=== PATIENT | female | born 1985 | race Caucasian/White ===

== ENCOUNTER 2022-03-07 09:06 | Outpatient (CLI) | payer OTHER, SELFPAY ==
--- NOTE | 2022-03-07 09:15 | CRLHL7_ITS ---
For Patients: As a result of the Cures Act, medical imaging exams and procedure reports are released immediately into your electronic medical record. You may view this report before your referring provider. If you have questions, please contact your health care provider. INDICATION: First trimester scan, establish dates. COMPARISON: None. TECHNIQUE: Real-time trammell-scale imaging of the pelvis was performed. FINDINGS: Sonographic imaging demonstrates a single living intrauterine gestation. The embryo demonstrates a regular cardiac rate measuring 157 beats per minute. The embryo`s crown-rump length measurement of 3.1 cm corresponds to a gestational age of 10 weeks 0 days with a sonographic due date of 10/03/2022. There is a normal-appearing yolk sac. There are no gross abnormalities noted within the embryo at this early state of development. The gestational sac has a normal appearance. There is an inferior perigestational hemorrhage measuring 1.8 x 0.6 x 3.4 cm and a superior perigestational hemorrhage measuring 0.8 x 1.3 x 2.2 cm. The amount of fluid within the sac appears appropriate for gestational age. The cervix is closed. The myometrium appears normal. The ovaries are of normal size. Corpus luteal cyst right ovary. There are no suspicious fluid collections noted in the cul-de-sac. IMPRESSION: Single living intrauterine with sonographic gestational age 10 weeks 0 days and sonographic due date of 10/03/2022. There are 2 subchorionic hemorrhages measuring 8 x 13 x 22 millimeters and 18 x 6 x 34 millimeters. Dictated by Elpidio Cool MD @ 03/07/2022 9:54:32 AM (Electronically Signed)
== END 2022-03-07 09:07 | disposition home or self-care (01) ==
LOC: US 09:06
PROVIDERS: Visit Provider Registered Nurse
DX: Z34.91 Encounter for supervision of normal pregnancy, unspecified, first trimester (principal); O20.9 Hemorrhage in early pregnancy, unspecified; Z3A.10 10 weeks gestation of pregnancy
CPT/HCPCS: 76801

== ENCOUNTER 2022-03-07 10:05 | Outpatient (CLI) | payer OTHER, SELFPAY ==
[2022-03-07 12:46] LABS: Hepatitis B Surface Antigen* Negative (Negative); Hepatitis C Virus Antibody* Negative (Negative)
[2022-03-07 13:53] LABS: HIV 1/2/P24 Combo Screen* Reactive (Negative)
[2022-03-07 14:44] LABS: Chlamydia DNA Amplified* NOT DETECTED (No Detected); GC DNA Amplified* NOT DETECTED (No Detected)
[2022-03-08 16:16] LABS: HIV Serologic Interpretation HIV Abs Neg; HIV-1 Antibody Negative (Negative); HIV-2 Antibody Negative (Negative)
[2022-03-08 17:07] LABS: Rapid Plasma Reagin (RPR) Non Reactive (Non Reactive)
[2022-03-08 17:22] LABS: Rubella Antibody IgG 12.9 IU/mL; Varicella-Zoster Virus Ab, IgG 448.2 IV
[2022-03-09 13:41] LABS: HIV-1 Qnt NAAT copies/mL Not Detected log cpy/mL
== END 2022-03-07 10:06 | disposition home or self-care (01) ==
PROVIDERS: Visit Provider Advanced Practice Midwife
DX: Z34.91 Encounter for supervision of normal pregnancy, unspecified, first trimester (principal); Z3A.09 9 weeks gestation of pregnancy
CPT/HCPCS: 84443; 86592; 86701; 86702; 86703; 86762; 86787; 86803; 86850; 86900; 86901; 87086; 87340; 87491; 87591

== ENCOUNTER 2022-04-22 15:45 | Emergency (ER) | payer OTHER, SELFPAY ==
[2022-04-22 15:54] VITALS: BP 102/72; PULSE 153; RESP 18; TEMP 37.7; O2SAT 99; BMI 29.2
--- NOTE | 2022-04-22 16:20 | ED.ARRPALP ---
HPI - Arrhythmia/Palpitations General Chief Complaint: Arrhythmia/Palpitations Stated Complaint: Tachycardia Time Seen by Provider: 04/22/22 15:58 History of Present Illness HPI narrative: This 36-year-old female is 16 weeks and has a history of SVT. She states that she awoke this morning at around 4:00 a.m. and noticed that her heart was beating rapidly. She did try some vagal maneuvers without resolution. She does not report any chest pain, lightheadedness, or shortness of breath. Related Data Home Medications Medication Instructions Recorded Confirmed cetirizine 10 mg capsule (Zyrtec) 10 mg PO QDAY PRN 03/07/22 03/07/22 docosahexaenoic acid 200 mg mg PO 03/07/22 03/07/22 capsule ( DHA) acetaminophen 500 mg tablet 1,000 mg PO Q6H PRN 04/19/22 04/19/22 (Tylenol Extra Strength) aspirin 81 mg chewable tablet 81 mg PO QDAY 04/19/22 04/19/22 Allergies Allergy/AdvReac Type Severity Reaction Status Date / Time No Known Allergies Allergy Unverified 04/19/22 15:41 Review of Systems Status of ROS: Reports: 10 or more systems reviewed and unremarkable except as noted in History and below Narrative: Constitutional: No fevers, no weight gain or loss. Eyes: No discharge. No vision changes. HENT: No congestion, no sore throat, no ear pain. Cardiovascular: No chest pain. Increased heart rate. Respiratory: No shortness of breath, no wheezes, no cough. Gastrointestinal: No abdominal pain, no vomiting, no diarrhea. Genitourinary: No dysuria, no hematuria. Musculoskeletal: Normal range of motion. Skin: No rashes, no pruritis. Neurological: No dizziness, weakness, sensory change, speech change. Endo/Heme/Allergies: No bruising or bleeding. No polydipsia. Pysch: no suicidality, no anxiety, no insomnia. All other systems reviewed and are negative. [facility] Medical History (Updated 04/22/22 @ 17:28 by Pablo Hernandez MD) Anxiety History of Supraventricular tachycardia Surgical History (Updated 03/07/22 @ 14:57 by Mima Mcneal CNM) H/O adenoidectomy History of section Advance teeth extracted Family History (Updated 03/07/22 @ 10:14 by Mima Mcneal CNM) Father Skin cancer Mother Skin cancer Tachycardia Maternal Grandmother Tachycardia Social History (Updated 03/08/22 @ 13:15 by Mima Mcneal CNM) Narrative: SOCIAL?? Education:? bachelors?? 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 Lives with:? and kids?? Pets: dog? Abuse:? Denies past/present?? Special Diet: Denies?? Ok with a blood transfusion:? yes?? Culture or yarsanism beliefs:? denies? Are you following a diet prescribed by a doctor: No Are you following a special diet: No Highest level of school completed/degree received: Bachelor's degree Physical activity type: walking and other Physical activity type details: IdeaString body workout How many days of moderate to strenuous exercise, like a brisk walk, did you do in the last 7 days: 4 Smoking Status: Never smoker How often do you have a drink containing alcohol: never How often do you have six or more drinks on one occasion: Never AUDIT-C Alcohol total score: 0 Non-prescribed substance use: denies use Caffeine: Yes (occasionally only) Little interest or pleasure in doing things: not at all Feeling down, depressed, or hopeless: not at all service: No Exam Narrative: Exam Narrative: Constitutional: Well-developed, well-nourished, no acute distress. HEENT: Normocephalic, atraumatic. Neck: Normal range of motion. Nontender. Supple. Heart: Regular. No murmurs. Tachycardia, rate around 130 beats per minute. Intact distal pulses. Lungs: Clear to auscultation. No chest discomfort. No wheezes, rhonchi, or rales. Abdomen: Normal bowel sounds. Nontender. No rebound tenderness. Gravid. Genitalia: Deferred. Back: No midline tenderness. Normal range of motion. Extremities: Normal range of motion. No injury. Skin: Intact. No rash. Warm. No erythema or pallor. Neurologic: No altered sensation. No weakness. Alert and oriented. Psychiatric: No suicidality. No anxiety or depression. No insomnia. Nursing notes and vitals signs are reviewed. Const: Vital Signs, click to edit/add: Vital Signs - 24 hr 04/22/22 15:54 Temperature 99.8 F H Pulse Rate [Right Pulse Oximeter] 153 H Respiratory Rate 18 Blood Pressure [Ri ght Upper Arm] 102/72 Pulse Oximetry 99 Oxygen Delivery Me thod Room Air Course Vital Signs Vital signs: Initial Vital Signs Temperature 99.8 F H 04/22/22 15:54 Temperature Source Temporal Artery Scan 04/22/22 15:54 Pulse Rate 153 H 04/22/22 15:54 Respiratory Rate 18 04/22/22 15:54 Blood Pressure 102/72 04/22/22 15:54 Blood Pressure Mean 82 04/22/22 15:54 Blood Pressure Position Sitting 04/22/22 15:54 Pulse Oximetry 99 04/22/22 15:54 Oxygen Delivery Method 04/22/22 15:54 Vital Signs Temperature 99.8 F H 04/22/22 15:54 Pulse Rate 153 H 04/22/22 15:54 Respiratory Rate 18 04/22/22 15:54 Blood Pressure 102/72 04/22/22 15:54 Pulse Oximetry 99 04/22/22 15:54 Oxygen Delivery Method 04/22/22 15:54 Temperature 99.8 F H 04/22/22 15:54 Pulse Rate 153 H 04/22/22 15:54 Respiratory Rate 18 04/22/22 15:54 Blood Pressure 102/72 04/22/22 15:54 Pulse Oximetry 99 04/22/22 15:54 Oxygen Delivery Method 04/22/22 15:54 MDM - Arrhythmia/Palpitations MDM Narrative Medical decision making narrative: This patient arrives with increased heart rate due to supraventricular tachycardia. She has had episodes of this in the past but not during . An IV was established where she received 6 mg of adenosine. This brought brief slowing of her heart but it returned again to around 130 beats per minute. A 2nd dose of 6 mg of adenosine was administered again with similar results however within less than a minute her heart began to decrease down to around 110 beats per minute. The patient states that she feels better with this treatment. She has continued to have a heart rate around 100 beats per minute throughout her stay here. She did receive a L of normal saline intravenously. Lab results returned with reassuring findings also except for an elevation in the point of care troponin at 0.09. A repeat troponin I was acquired from the lab and returns elevated at 0.21. The patient has not had any chest pain. She does not have any sign of unilateral limb pain or swelling and no history of blood clot. She is not hypoxic and has oximetry at 98% on room air. I discussed these matters with the camp counselor post tensioning ironworker helper at [facility] who agrees that this is most likely demand ischemia related to her tachycardia over the course of about 12 hours. She is okay to return home and encouraged to follow-up with her primary physician or return if recurrent or worsening symptoms happen. Lab Data Labs: Lab Results 04/22/22 04/22/22 04/22/22 Range/Units 16:10 16:10 16:21 WBC 11.76 H (4.50-11.00) K/uL RBC 4.61 (4.00-5.20) m/uL Hgb 13.6 (12.0-16.0) gm/dL Hct 40.7 (33.0-51.0) % MCV 88 (80-100) fL MCH 30 (26-34) pg MCHC 33 (32-36) gm/dL RDW Coeff of Bonita 13.1 (11.5-15.5) % Plt Count 259 (140-440) K/uL Neut % (Auto) 71.1 (42.0-72.0) % Lymph % (Auto) 21.5 (20-44) % [place] % (Auto) 6.4 (0.0-11.0) % Eos % (Auto) 0.5 (0.0-7.0) % Baso % (Auto) 0.3 (0.0-3.0) % Neut # (Auto) 8.40 H (1.7-7.0) K/uL Lymph # (Auto) 2.50 (0.90-2.90) K/uL [place] # (Auto) 0.80 (0.00-0.90) K/UL Eos # (Auto) 0.10 (0.00-0.50) K/uL Baso # (Auto) 0.00 (0.00-0.30) K/uL Abs Immat Gran (auto) 0.02 (0.00-0.30) K/uL Sodium 136 (135-149) mmol/L Potassium 3.4 L (3.6-5.1) mmol/L Chloride 105 (96-114) mmol/L Carbon Dioxide 21 (20-32) mmol/L BUN 8 (5-24) mg/dL Creatinine 0.4 L (0.5-1.5) mg/dL Estimated Creat Clear 185.52 Estimated GFR 133 ml/min Glucose 147 H (60-115) mg/dL Calcium 9.0 (8.4-10.6) mg/dL Magnesium 1.8 (1.5-2.6) mg/dL Troponin I (0.01-0.04) ng/mL POC Troponin I 0.09 H (0.01-0.04) ng/ml 04/22/22 Range/Units 17:24 WBC (4.50-11.00) K/uL RBC (4.00-5.20) m/uL Hgb (12.0-16.0) gm/dL Hct (33.0-51.0) % MCV (80-100) fL MCH (26-34) pg MCHC (32-36) gm/dL RDW Coeff of Bonita (11.5-15.5) % Plt Count (140-440) K/uL Neut % (Auto) (42.0-72.0) % Lymph % (Auto) (20-44) % [place] % (Auto) (0.0-11.0) % Eos % (Auto) (0.0-7.0) % Baso % (Auto) (0.0-3.0) % Neut # (Auto) (1.7-7.0) K/uL Lymph # (Auto) (0.90-2.90) K/uL [place] # (Auto) (0.00-0.90) K/UL Eos # (Auto) (0.00-0.50) K/uL Baso # (Auto) (0.00-0.30) K/uL Abs Immat Gran (auto) (0.00-0.30) K/uL Sodium (135-149) mmol/L Potassium (3.6-5.1) mmol/L Chloride (96-114) mmol/L Carbon Dioxide (20-32) mmol/L BUN (5-24) mg/dL Creatinine (0.5-1.5) mg/dL Estimated Creat Clear Estimated GFR ml/min Glucose (60-115) mg/dL Calcium (8.4-10.6) mg/dL Magnesium (1.5-2.6) mg/dL Troponin I 0.21 H* (0.01-0.04) ng/mL POC Troponin I (0.01-0.04) ng/ml Discharge Plan Discharge Clinical Impression: , Supraventricular tachycardia Patient Disposition: Home, Self-Care Condition: Improved Additional Instructions: Continue current plans. Follow-up with OBGYN or primary physician. Return if recurrent or worsening symptoms happen. Prescriptions: No Action Zyrtec 10 mg capsule 10 mg PO QDAY PRN DHA 200 mg capsule PO acetaminophen [Tylenol Extra Strength] 500 mg tablet 1,000 mg PO Q6H PRN aspirin 81 mg tablet,chewable 81 mg PO QDAY Follow Up/Referrals: Provider,Not a Local [Primary Care Provider] - Stand Alone Forms: [facility] Info Instructions Procedures Ultrasound Other exam #1: Anatomical areas examined: at 16 weeks gestation. Indications: Mother had supraventricular tachycardia. Exam type: focused emergency ultrasound Description/findings: Normal heart activity and anatomy. Impression: Normal findings at 16 weeks gestation.
[2022-04-22 16:27] LABS: Troponin, Point-of-Care* 0.09 ng/ml (0.01-0.04)
[2022-04-22 16:40] LABS: Basophils Percent Auto 0.3 % (0.0-3.0); Eosinophils Percent Auto 0.5 % (0.0-7.0); Hematocrit 40.7 % (33.0-51.0); Hemoglobin* 13.6 gm/dL (12.0-16.0); Immature Granulocytes Abs Auto 0.02 K/uL (0.00-0.30); Lymphocytes Percent Auto 21.5 % (20-44); Mean Corpuscular HGB Conc 33 gm/dL (32-36); Mean Corpuscular Hemoglobin 30 pg (26-34); Mean Corpuscular Volume 88 fL (80-100); Monocytes Percent Auto 6.4 % (0.0-11.0); Neutrophils Percent Auto 71.1 % (42.0-72.0); Platelet Count* 259 K/uL (140-440); RDW Coefficient of Variation % 13.1 % (11.5-15.5); Red Blood Count 4.61 m/uL (4.00-5.20); White Blood Count* 11.76 K/uL (4.50-11.00)
[2022-04-22 16:41] LABS: Chloride* 105 mmol/L (96-114); Potassium* 3.4 mmol/L (3.6-5.1); Sodium* 136 mmol/L (135-149)
[2022-04-22 16:43] LABS: Creatinine* 0.4 mg/dL (0.5-1.5); Est. Creatinine Clearance* 185.52; Estimated Glomerular Filt Rate 133 ml/min; Slide Review Reflex No
[2022-04-22 16:44] LABS: Blood Urea Nitrogen* 8 mg/dL (5-24); Carbon Dioxide* 21 mmol/L (20-32); Glucose* 147 mg/dL (60-115)
[2022-04-22 16:45] LABS: Magnesium* 1.8 mg/dL (1.5-2.6)
[2022-04-22 18:12] LABS: Troponin I* 0.21 ng/mL (0.01-0.04)
--- OUTSIDE RECORDS SUMMARY | 2022-04-30 21:27 | XMS_ITS | Clinical Summary ---
:1985 Author Organization [employer] [facility] [place] [address] Care Team Providers Name Role Phone None Unavailable Unavailable Joanna Gaines MD Primary Care Provider Allergies No known active allergies Medications Medication Sig Dispensed Refills Start Date End Date Status hydrOXYzine pamoate Take 1 capsule by 90 capsule 0 07/31/2020 Active (VISTARIL) 25 mg mouth 3 times capsuleIndications: daily if needed Anxiety for Anxiety (may take up to 50 mg at bedtime). cetirizine (ZYRTEC) 10 Take 1 Tablet (10 0 Active mg tablet mg) by mouth once daily. montelukast Take 1 Tablet (10 90 Tablet 3 05/21/2021 Active (SINGULAIR) 10 mg mg) by mouth at tabletIndications: bedtime. Seasonal allergies Active Problems Problem Noted Date Nexplanon in place 05/21/2021 Paroxysmal SVT (supraventricular tachycardia) 05/21/20 21 Anxiety 05/21/2021 12/24/2018 Overview: Formatting of this note is dif ferent from the original. Estimated Date of Delivery: 07/24/19 Patient's last menstrual period was 09/21 (exact date). Last Tdap- 10/26/2016 Last Flu vaccine- 04/21/2016 Glucose (GTT) result- too early No Known Allergies OB History Para Term AB Living 2 1 1 0 0 1 SAB TAB Ectopic Multiple Live Births 0 0 0 0 1 # Outcome Date GA Lbr Stanford/2nd Weight Sex Delivery Anes PTL Lv 2 Current 1 Term 01/12/17 39w5d 3.74 kg (8 lb 4 oz ) F CS-LVertical SPINAL N REYES Complications: Intolerance, Failu re to Progress in First Stage Name: [place] Create lab flowsheet for OB labs- Component Latest Ref Rng & Units 11/27/2018 9 11/27/2018 8:45 AM 8:45 AM 8:45 AM ANTIBODY SCREEN Negative Negative SPECIMEN EXPIRATION DATE/TIME 11/30/18 23:59 HEMOGLOBIN 12.0 - 16.0 g/dL 14.2 MCV 80 - 100 fL 88 RUBELLA IGG ANTIBODY Positive 1.73 HEMOGLOBIN A1C SCREENING <=6.4 % 5.2 ABORH O Rh Positive HBSAG Nonreactive Nonreactive HEPATITIS C ANTIBODY Non-Reactive Non-Reactive HIV-1/HIV-2 ANTIBODY Non-Reactive Non-Reactive TREPONEMA PALLIDUM Negative Negative Past Medical History: Diagnosis Date ? ? ALLERGIC RHINITIS CAUSE UNSPECIFIED 01/02/2007 ? ? Palpitations 1992 childhood--work-up negative ? ? Supervision of normal first in first trimester 05/11/2016 Past Surgical History: Procedure Laterality Date ? ? ADENOIDECTOMY 01/26/99 Dr. San ? ? [place] CREATE EARDRUM OPENING GEN ANESTH 01/26/99 Dr. San ? ? WISDOM TEETH EXTRACTION 01/2005 No data on file. Problems (from 11/27/18 to pre sent) No problems associated with this episod eAnya Lay RNC.....12/24/2018 10:15 AM History of 12/21/2018 Supervision of normal first in first trimest er 05/11/2016 Overview: Formatting of this note is dif ferent from the original. Complications this : none ?? Father of baby: Ger ? GBS: GTT: 130 Blood type: O+ Hemoglobin: 13.5-11.4 HIV negative Hepatitis B Negative Treponema Negative Rubella immune Immunizations: Tdap -- 10/26/2016 Influenza-- 04/21/2016 Family planning, BCP maintenance 2013 SVT (supraventricular tachycardia) 05/25/2010 Overview: Periodic episodes--had full cardiac work up 07/01--plan is to observe for now. Allergic rhinitis, cause unspecified 01/02/2007 Dysmenorrhea 01/02/2007 Immunizations Name Administration Dates Next Due AMB Influenza, IIV4 PF (=>6 mos 04/17/2020 Flulaval,Fluzone Fluarix)(Flu Clinic Only) COVID-19 vaccine (Moderna 07/02/2021, 11/18/2020, 10/21/2020 100mcg/0.5mL) PF, MDV DTP 02/04/1993, 03/31/1989, 03/21/1988, 02/03/1988, 1987 HIB PRP-D (ProHIBIT) 03/31/1989 HPV 9 (Gardasil 9) 07/25/2007, 01/02/2007 Hepatitis A (Adult) 02/16/2009, 03/12/2008 Hepatitis B (Peds) 08/02/2000, 03/06/2000, 01/31/2000 Human Papilloma Virus Vaccine 07/25/2007, 03/06/2007, 200607/06/2007 Influenza A (H1N1), Inactivated 07/20/2009 Influenza Virus, Unspecified 05/21/2014 Influenza, IIV3 (Age >=3 years) 05/15/2017, 05/27/2005, 04/25 Influenza, IIV4 06/01/2021, 05/02/2019, 05/18/2018, 04/21/2016, 07/20/2009 MMR 08/20/1999, 12/23/1988 Meningococcal Vaccine (Menactra) 03/25/2005 Meningococcal Vaccine (Menomune) 03/25/2005 Oral Polio Vaccine 02/04/1993, 03/31/1989, 02/03/1988, 1987 Td (Age >=7 Years) 08/20/1999 Tdap 05/14/2019, 10/26/2016, 02/04/2011 Family History Medical History Relation Name Comments Good Health Father Good Health Maternal Grandfather Good Health Maternal Grandmother Stroke Maternal Grandmother Good Health Mother Cancer-breast Paternal Aunt Hyperlipidemia Paternal Aunt Other Paternal Grandfather brain cance r Good Health Paternal Grandmother Other Paternal Uncle brain cancer Relation Name Status Comments Father Alive Maternal Grandfather (Age 93) Maternal Grandmother Alive Mother Alive Paternal Aunt Paternal Grandfather Paternal Grandmother Alive Paternal Uncle Social History Tobacco Use Types Packs/Day Years Used Date Never Smoker Smokeless Tobacco: Never Used Tobacco Cessation: Counseling Given: Yes Alcohol Use Standard Drinks/Week Comments Yes 1 (1 standard drink = 0.6 oz pure alcoho l) Sex Assigned at Date Recorded Not on file Obstetrics History Para Term AB IAB SAB Ectopic Multiple Living Live Births 2 1 1 0 0 0 0 0 0 1 1 Date Outcome GA Total Labor/2nd/3rd Weight Sex Delivery Anes PTL Reyes A 1 A5 Name Clin Labor 01/12 Term 39w 3.74 kg F CS-LVerti Spina N Suki Merino Dr. /2016 5d (8 lb 4 jamie l ng in C oole oz) y Complications: Intolerance, Failur e to Progress in First Stage Delivery Location: [facility] Last Filed Vital Signs Vital Sign Reading Time Taken Comments Blood Pressure 106/71 11/08/2021 8:29 AM CDT Pulse 75 11/08/2021 8:29 AM CDT Temperature 36.8 ??C (98.3 ??F) 11/08/2021 8:29 AM CDT Respiratory Rate 16 06/20/2014 1:50 PM SPECIAL EDUCATION CASE MANAGER Oxygen Saturation 99% 11/08/2021 8:29 AM CDT Inhaled Oxygen Concentration - - Weight 78.4 kg (172 lb 12.8 oz) 11/08/2021 8:29 AM CDT Height 165.7 cm (5' 5.25) 11/08/2021 8:29 AM CDT Body Mass Index 28.54 11/08/2021 8:29 AM CDT Plan of Treatment Health Maintenance Due Date Last Done Comments Influenza for age 9-49 03/24/2022 06/01/2021, 04/17/2020, 05/02/2019, Additional history exists Depression screening for age 12+ 05/21/2022 05/21/2021, 02/2021, 11/27/2018, Additional history exists BMI (ht and wt on same day) for 11/08/2022 11/08/2021, 09/21, age 18+ 08/31/2021, Additional history exists Pap test for age 21-65 05/21/2026 05/21/2021, 05/21/2021, 10/02/2018, Additional history exists Tetanus booster 05/14/2029 05/14/2019, 10/26/2016, 02/04/2011, Additional history exists Hepatitis C screening for age Completed 11/27/2018 18-79 Tdap Completed 05/14/2019, 10/26/2016, 02/04/2011 COVID-19 vaccine series Completed 07/02/2021, 11/18/2020, 10/21/2020 Results Not on filefrom Last 3 Months Insurance Payer Benefit Plan / Subscriber ID Effective Dates Phone Addre ss Type Group SELECTCARE SELECTCARE Effective for [address] 89 LABORCARE NON all dates [facility] [phone] [employer] [place] [id number] 2017-Presen [address] [place] [address] Lizbeth Stockton Personal/Family Self 1985 [address] [facility] (Home) [place] [id number] Care Teams Pt Skilled Relationship Specialty Start Date End Date Joanna Gaines MD PCP - General Family Practice 03/07/17 [address] [place], [place] [phone] None 09/19/13 .
== END 2022-04-22 19:07 | disposition home or self-care (01) ==
PROVIDERS: Emergency Provider Emergency Medicine Emergency Medical Services
DX: I47.1 Supraventricular tachycardia (principal); Z3A.16 16 weeks gestation of pregnancy
CPT/HCPCS: 36415; 76815; 80048; 83735; 84484; 85025; 93005; 99284; 99285

== ENCOUNTER 2022-05-18 13:53 | Outpatient (CLI) | payer OTHER, SELFPAY ==
--- OUTSIDE RECORDS SUMMARY | 2022-05-18 13:55 | XMS_ITS | Clinical Summary ---
:1985 Author Organization [employer] [facility] [place] [address] Care Team Providers Name Role Phone None [...] (ZYRTEC) 10 Take 1 Tablet (10 0 1 Active mg tablet mg) by mouth once [...] ? ADENOIDECTOMY 01/26/99 Dr. San ? ? [place] CREATE EARDRUM OPENING GEN ANESTH 01/26/99 Dr. 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 Oxygen Saturation 99% 11/08/2021 8:29 AM CDT Inhaled Oxygen Concentration - - Weight 78.4 kg (172 lb 12.8 oz) 11/08/2021 8:29 AM CDT Height 165.7 cm (5' 5.25) 11/08/2021 8:29 AM CDT Body Mass Index 28.54 11/08/2021 8:29 AM CDT Plan of Treatment Health Maintenance Due Date Last Done Comments COVID-19 vaccine series (4 - 08/27/2021 07/02/2021, 021, Booster for Moderna series) 10/21/2020 Influenza for age 9-49 03/24/2022 06/01/2021, 04/17/2020, [...] 11/27/2018 18-79 Tdap Completed 05/14/2019, 10/26/2016, 02/04/2011 Results Not on filefrom Last 3 Months Insurance Payer Benefit Plan / Subscriber ID Effective Dates Phone Addre ss Type Group SELECTCARE SELECTCARE Effective for [address] 89 LABORCARE NON all dates [facility] [address] [employer] [place] [id number] 2017-Presen [address] [place] [address] Lizbeth Stockton Personal/Family Self 1985 [address] [facility] (Home) [place] [id number] Care Teams Web Operations Lead Relationship Specialty Start Date End Date Joanna Gaines MD PCP - General Family Practice 03/07/17 [address] [place], [place] [phone] None 09/19/13 .
== END 2022-05-18 13:54 | disposition home or self-care (01) ==
LOC: US 13:54
PROVIDERS: Visit Provider Pediatrics Neonatal-Perinatal Medicine
DX: O09.522 Supervision of elderly multigravida, second trimester (principal); O98.512 Other viral diseases complicating pregnancy, second trimester; Z3A.20 20 weeks gestation of pregnancy
CPT/HCPCS: 76811

== ENCOUNTER 2022-06-29 06:41 | Emergency (ER) | payer OTHER, SELFPAY ==
[2022-06-29] VITALS (16 sets, daily range): BP systolic 98–115; BP diastolic 63–81; PULSE 113–160; RESP 17–18; TEMP 36.7; O2SAT 98–100; BMI 29.9
[2022-06-29] MEDS: 0.9 % SODIUM CHLORIDE 1000 ml 1,000 ML 500 ML IV (06:55)
[2022-06-29] MEDS: ADENOSINE 6 MG/2ML INJ IVP (06:59)
[2022-06-29] MEDS: ADENOSINE 6 MG/2ML INJ 12 MG IVP (07:03)
[2022-06-29 07:36] LABS: Troponin, Point-of-Care* 0.02 ng/ml (0.01-0.04)
--- OUTSIDE RECORDS SUMMARY | 2022-06-29 07:44 | XMS_ITS | Clinical Summary ---
:1985 Author Organization [employer] [facility] [place] [address] Care Team Providers Name Role Phone None [...] 4 oz ) F CS-LVertical SPINAL N JOHANNA Complications: Intolerance, Failu re to Progress in [...] ? ADENOIDECTOMY 01/26/99 Dr. San ? ? [place] CREATE EARDRUM OPENING GEN ANESTH 01/26/99 Dr. [...] Total Labor/2nd/3rd Weight Sex Delivery Anes PTL Johanna A 1 A5 Name Clin Labor 01/12 Term 39w 3.74 kg F CS-LVerti Spina N Suki Angelique Murphy /2016 5d (8 lb 4 jamie l ng in C oole oz) y Complications: Intolerance, Failur e to Progress in First Stage Delivery Location: [facility] Last Filed Vital Signs Vital Sign Reading Time Taken Comments Blood Pressure 106/71 11/08/2021 8:29 AM CDT Pulse 75 11/08/2021 8:29 AM CDT Temperature 36.8 ??C (98.3 ??F) 11/08/2021 8:29 AM CDT Respiratory Rate 16 06/20/2014 1:50 PM SPINE SURGEON Oxygen Saturation 99% 11/08/2021 8:29 AM CDT [...] 05/14/2029 05/14/2019, 10/26/2016, 02/04/2011, Additional history exists HIV for age 15-65 Completed 11/27/2018, 05/11/2016 Hepatitis C screening for age Completed 11/27/2018 18-79 Tdap Completed 05/14/2019, 10/26/2016, 02/04/2011 Results Not on filefrom Last 3 Months Insurance Payer Benefit Plan / Subscriber ID Effective Dates Phone Addre ss Type Group SELECTCARE SELECTCARE Effective for [address] 89 LABORCARE NON all dates [facility] [phone] [employer] [place] [id number] 2017-[address]en [address] [place] [address] Lizbeth Stockton Personal/Family Self 1985 [address] [facility] (Home) [place] [address] Care Teams Management Expert Relationship Specialty Start Date End Date Joanna Gaines MD PCP - General Family Practice 03/07/17 [address] [place] [address] None 09/19/13 .
[2022-06-29 07:48] LABS: Basophils Percent Auto 0.1 % (0.0-3.0); Eosinophils Percent Auto 0.9 % (0.0-7.0); Hematocrit 41.9 % (33.0-51.0); Hemoglobin* 13.8 gm/dL (12.0-16.0); Immature Granulocytes Pct Auto 0.4 %; Lymphocytes Percent Auto 22.1 % (20-44); Mean Corpuscular HGB Conc 33 gm/dL (32-36); Mean Corpuscular Hemoglobin 30 pg (26-34); Mean Corpuscular Volume 92 fL (80-100); Monocytes Percent Auto 5.9 % (0.0-11.0); Neutrophils Percent Auto 70.6 % (42.0-72.0); Platelet Count* 302 K/uL (140-440); RDW Coefficient of Variation % 13.8 % (11.5-15.5); Red Blood Count 4.57 m/uL (4.00-5.20); White Blood Count* 13.42 K/uL (4.50-11.00)
--- NOTE | 2022-06-29 07:51 | ED.GENADULT ---
HPI - General Adult General Date Seen: 06/29/22 <Elpidio Cuellar MD - Last Filed: 06/29/22 16:10> Chief complaint: Arrhythmia/Palpitations <Elpidio Cuellar MD - Last Filed: 06/29/22 16:10> Stated complaint: SVT <Elpidio Cuellar MD - Last Filed: 06/29/22 16:10> Time Seen by Provider: 06/29/22 06:52 <Elpidio Cuellar MD - Last Filed: 06/29/22 16:10> Source: patient <Elpidio Cuellar MD - Last Filed: 06/29/22 16:10> Mode of arrival: ambulatory <Elpidio Cuellar MD - Last Filed: 06/29/22 16:10> Limitations: no limitations <Elpidio Cuellar MD - Last Filed: 06/29/22 16:10> History of Present Illness HPI narrative: Patient is a 36-year-old three para 1999 at 26 weeks gestation who comes in with a 13 hour history SVT. She has had this numerous times before, most recently about two months ago. At that time she was given adenosine x2 and IV fluids and eventually converted and slow down to about 110. She denies chest pains or shortness of breath. She tried variety of vagal maneuvers with no relief. She is scheduled to see cardiology in 48 hours but has never been on medication for this problem. Her has otherwise been uncomplicated. She does not identify with a single Ob provider and apparently has seen them all. She does not know who she will be seeing for her next appointment. <Elpidio Cuellar MD - Last Filed: 06/29/22 16:10> Related Data Home medications: Home Medications Medication Instructions Recorded Confirmed cetirizine 10 mg capsule (Zyrtec) 10 mg PO QDAY PRN 03/07/22 06/15/22 docosahexaenoic acid 200 mg mg PO 03/07/22 06/15/22 capsule ( DHA) acetaminophen 500 mg tablet 1,000 mg PO Q6H PRN 04/19/22 06/15/22 (Tylenol Extra Strength) aspirin 81 mg chewable tablet 81 mg PO QDAY 04/19/22 06/15/22 gkung-apx-knczkjakbj-C-zinc 6 ml PO 05/18/22 06/15/22 gram-38 mg-25 mg-34 mg/5 mL oral syrup Previous Rx's Medication Instructions Recorded metoprolol succinate 25 mg 25 mg PO DAILY #14 tabs 06/29/22 tablet,extended release 24 hr (Toprol XL) <Elpidio Cuellar MD - Last Filed: 06/29/22 16:10> Allergies/adverse reactions: Allergies Allergy/AdvReac Type Severity Reaction Status Date / Time No Known Allergies Allergy Verified 06/29/22 07:39 <Elpidio Cuellar MD - Last Filed: 06/29/22 16:10> [facility] Medical History: Medical History (Updated 06/29/22 @ 08:13 by Berny Galicia MD) Anxiety History of Supraventricular tachycardia <Elpidio Cuellar MD - Last Filed: 06/29/22 16:10> Surgical History: Surgical History (Updated 03/07/22 @ 14:57 by Mima Mcneal CNM) H/O adenoidectomy History of section [place] teeth extracted <Elpidio Cuellar MD - Last Filed: 06/29/22 16:10> Family History: Family History (Updated 03/07/22 @ 10:14 by Mima Mcneal CNM) Father Skin cancer Mother Skin cancer Tachycardia Maternal Grandmother Tachycardia <Elpidio Cuellar MD - Last Filed: 06/29/22 16:10> Social History: Social History (Updated 03/08/22 @ 13:15 by Mima Mcneal CNM) Narrative: SOCIAL?? Education:? bachelors?? 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 Lives with:? and kids?? Pets: dog? Abuse:? Denies past/present?? Special Diet: Denies?? Ok with a blood transfusion:? yes?? Culture or tenriism beliefs:? denies? Are you following a diet prescribed by a doctor: No Are you following a special diet: No Highest level of school completed/degree received: Bachelor's degree Physical activity type: walking and other Physical activity type details: beach body workout How many days of moderate to strenuous exercise, like a brisk walk, did you do in the last 7 days: 4 Smoking Status: Never smoker How often do you have a drink containing alcohol: never How often do you have six or more drinks on one occasion: Never AUDIT-C Alcohol total score: 0 Non-prescribed substance use: denies use Caffeine: Yes (occasionally only) Little interest or pleasure in doing things: not at all Feeling down, depressed, or hopeless: not at all service: No <Elpidio Cuellar MD - Last Filed: 06/29/22 16:10> Exam Narrative: Exam Narrative: Vitals noted. HEENT: Conjunctiva clear. Neck is supple without adenopathy, thyromegaly, carotid bruit. No jugular venous distension. Lungs: Clear to auscultation in all moe. No wheezes, rales, rhonchi. Heart: Tachycardic and regular. No murmur. Heart rate is in the 150s. Abdomen: Gravid, Soft and nontender. No guarding, rigidity, rebound. Bowel sounds are normal. No palpable masses. Extremities: No cyanosis or edema. Good distal pulses. Skin: No abnormalities noted of the exposed skin. Neurologic: Awake, alert, fully oriented. Neurologic exam is nonfocal. heart tones are monitored by the [facility] RN and are reassuring. <Elpidio Cuellar MD - Last Filed: 06/29/22 16:10> Const: Vital Signs, click to edit/add: Vital Signs - 24 hr 06/29/22 06:50 06/29/22 06:54 06/29/22 07:04 Temperature 98.0 F Pulse Rate 121 H Pulse Rate [Left P ulse Oximeter] 160 H 156 H Respiratory Rate 18 17 Blood Pressure 104/66 Blood Pressure [Ri ght Upper Arm] 113/79 102/81 Pulse Oximetry 99 100 100 Oxygen Delivery Me thod Room Air Room Air 06/29/22 07:05 06/29/22 07:06 06/29/22 07:15 Temperature Pulse Rate 118 H 121 H 123 H Pulse Rate [Left P ulse Oximeter] Respiratory Rate Blood Pressure 115/79 Blood Pressure [Ri ght Upper Arm] Pulse Oximetry 99 98 98 Oxygen Delivery Me thod 06/29/22 07:16 06/29/22 07:30 06/29/22 07:31 Temperature Pulse Rate 120 H 125 H 128 H Pulse Rate [Left P ulse Oximeter] Respiratory Rate Blood Pressure 101/66 98/63 Blood Pressure [Ri ght Upper Arm] Pulse Oximetry 98 98 99 Oxygen Delivery Me thod 06/29/22 07:45 06/29/22 07:46 06/29/22 06:55 Temperature Pulse Rate 121 H 121 H Pulse Rate [Left P ulse Oximeter] 154 H Respiratory Rate 18 Blood Pressure 103/70 Blood Pressure [Ri ght Upper Arm] 98/81 Pulse Oximetry 99 99 100 Oxygen Delivery Me thod Room Air 06/29/22 07:00 06/29/22 07:47 06/29/22 08:00 Temperature Pulse Rate 124 H 113 H Pulse Rate [Left P ulse Oximeter] 142 H Respiratory Rate 18 Blood Pressure Blood Pressure [Ri ght Upper Arm] 104/66 Pulse Oximetry 100 99 99 Oxygen Delivery Me thod Room Air 06/29/22 08:01 Temperature Pulse Rate 116 H Pulse Rate [Left P ulse Oximeter] Respiratory Rate Blood Pressure 99/65 Blood Pressure [Ri ght Upper Arm] Pulse Oximetry 99 Oxygen Delivery Me thod <Elpidio Cuellar MD - Last Filed: 06/29/22 16:10> Vital Signs, click to edit/add: Vital Signs - 24 hr 06/29/22 06:50 06/29/22 06:54 06/29/22 07:04 Temperature 98.0 F Pulse Rate 121 H Pulse Rate [Left P ulse Oximeter] 160 H 156 H Respiratory Rate 18 17 Blood Pressure 104/66 Blood Pressure [Ri ght Upper Arm] 113/79 102/81 Pulse Oximetry 99 100 100 Oxygen Delivery Me thod Room Air Room Air 06/29/22 07:05 06/29/22 07:06 06/29/22 07:15 Temperature Pulse Rate 118 H 121 H 123 H Pulse Rate [Left P ulse Oximeter] Respiratory Rate Blood Pressure 115/79 Blood Pressure [Ri ght Upper Arm] Pulse Oximetry 99 98 98 Oxygen Delivery Me thod 06/29/22 07:16 06/29/22 07:30 06/29/22 07:31 Temperature Pulse Rate 120 H 125 H 128 H Pulse Rate [Left P ulse Oximeter] Respiratory Rate Blood Pressure 101/66 98/63 Blood Pressure [Ri ght Upper Arm] Pulse Oximetry 98 98 99 Oxygen Delivery Me thod 06/29/22 07:45 06/29/22 07:46 06/29/22 06:55 Temperature Pulse Rate 121 H 121 H Pulse Rate [Left P ulse Oximeter] 154 H Respiratory Rate 18 Blood Pressure 103/70 Blood Pressure [Ri ght Upper Arm] 98/81 Pulse Oximetry 99 99 100 Oxygen Delivery Me thod Room Air 06/29/22 07:00 06/29/22 07:47 06/29/22 08:00 Temperature Pulse Rate 124 H 113 H Pulse Rate [Left P ulse Oximeter] 142 H Respiratory Rate 18 Blood Pressure Blood Pressure [Ri ght Upper Arm] 104/66 Pulse Oximetry 100 99 99 Oxygen Delivery Me thod Room Air 06/29/22 08:01 Temperature Pulse Rate 116 H Pulse Rate [Left P ulse Oximeter] Respiratory Rate Blood Pressure 99/65 Blood Pressure [Ri ght Upper Arm] Pulse Oximetry 99 Oxygen Delivery Me thod <Berny Galicia MD - Last Filed: 06/29/22 08:41> Documenting provider has reviewed patient's vital signs: yes <Elpidio Cuellar MD - Last Filed: 06/29/22 16:10> Course Course Hospital Course: Patient seen and examined. She is widely stable but tachycardic with a rate of about 150. IV is established and we started a saline bolus. She is given adenosine 6 mg IV with little affect. She is then given a 12 mg dose but resumed SVT with a rate now in the 120-130 range. <Elpidio Cuellar MD - Last Filed: 06/29/22 16:10> Reevaluation(s) Reevaluation #1: Patient has converted to sinus tachycardia with a rate of about 115. She still feels that her heart is racing has no chest pains or shortness of breath. Labs are ordered and pending. Initial point of care troponin is normal. I did put a call out to Cardiology at [facility] and waiting for a call back. Her care will be turned over to Dr. Galicia at the end of my shift. <Elpidio Cuellar MD - Last Filed: 06/29/22 16:10> Reevaluation #2: I did speak to Dr. Coronado from [facility] and we decided to start her on Toprol-XL 25 mg daily. Her blood pressure is only 105/60 so a bigger dose may drop her pressure too much. She is discharged in improved condition. <Elpidio Cuellar MD - Last Filed: 06/29/22 16:10> Vital Signs Vital signs: Initial Vital Signs Temperature 98.0 F 06/29/22 06:50 Temperature Source Temporal Artery Scan 06/29/22 06:50 Pulse Rate 160 H 06/29/22 06:50 Pulse Rhythm 06/29/22 06:50 Pulse Strength 3+ Normal 06/29/22 06:50 Respiratory Rate 18 06/29/22 06:50 Blood Pressure 113/79 06/29/22 06:50 Blood Pressure Mean 90 06/29/22 06:50 Blood Pressure Position Sitting 06/29/22 06:50 Pulse Oximetry 99 06/29/22 06:50 Oxygen Delivery Method 06/29/22 06:50 Vital Signs Temperature 98.0 F 06/29/22 06:50 Pulse Rate 160 H 06/29/22 06:50 Respiratory Rate 18 06/29/22 06:50 Blood Pressure 113/79 06/29/22 06:50 Pulse Oximetry 99 06/29/22 06:50 Oxygen Delivery Method 06/29/22 06:50 Temperature 98.0 F 06/29/22 06:50 Pulse Rate 116 H 06/29/22 08:01 Respiratory Rate 18 06/29/22 07:00 Blood Pressure 99/65 06/29/22 08:01 Pulse Oximetry 99 06/29/22 08:01 Oxygen Delivery Method 06/29/22 07:00 <Elpidio Cuellar MD - Last Filed: 06/29/22 16:10> Initial Vital Signs Temperature 98.0 F 06/29/22 06:50 Temperature Source Temporal Artery Scan 06/29/22 06:50 Pulse Rate 160 H 06/29/22 06:50 Pulse Rhythm 06/29/22 06:50 Pulse Strength 3+ Normal 06/29/22 06:50 Respiratory Rate 18 06/29/22 06:50 Blood Pressure 113/79 06/29/22 06:50 Blood Pressure Mean 90 06/29/22 06:50 Blood Pressure Position Sitting 06/29/22 06:50 Pulse Oximetry 99 06/29/22 06:50 Oxygen Delivery Method 06/29/22 06:50 Vital Signs Temperature 98.0 F 06/29/22 06:50 Pulse Rate 160 H 06/29/22 06:50 Respiratory Rate 18 06/29/22 06:50 Blood Pressure 113/79 06/29/22 06:50 Pulse Oximetry 99 06/29/22 06:50 Oxygen Delivery Method 06/29/22 06:50 Temperature 98.0 F 06/29/22 06:50 Pulse Rate 116 H 06/29/22 08:01 Respiratory Rate 18 06/29/22 07:00 Blood Pressure 99/65 06/29/22 08:01 Pulse Oximetry 99 06/29/22 08:01 Oxygen Delivery Method 06/29/22 07:00 <Berny Galicia MD - Last Filed: 06/29/22 08:41> Medical Decision Making MDM Narrative Medical decision making narrative: Dr. Cuellar discussed with Cardiology and they recommended starting Toprol-XL 25 mg daily until cardiology appointment in follow-up. She will be given a dose now and then a prescription written, she can return as needed. Light activity, fluids, rest. <Berny Galicia MD - Last Filed: 06/29/22 08:41> Lab Data Labs: Lab Results 06/29/22 06/29/22 06/29/22 Range/Units 06:55 06:58 06:58 WBC 13.42 H (4.50-11.00) K/uL RBC 4.57 (4.00-5.20) m/uL Hgb 13.8 (12.0-16.0) gm/dL Hct 41.9 (33.0-51.0) % MCV 92 (80-100) fL MCH 30 (26-34) pg MCHC 33 (32-36) gm/dL RDW Coeff of Bonita 13.8 (11.5-15.5) % Plt Count 302 (140-440) K/uL Neut % (Auto) 70.6 (42.0-72.0) % Lymph % (Auto) 22.1 (20-44) % Payne % (Auto) 5.9 (0.0-11.0) % Eos % (Auto) 0.9 (0.0-7.0) % Baso % (Auto) 0.1 (0.0-3.0) % Neut # (Auto) 9.50 H (1.7-7.0) K/uL Lymph # (Auto) 3.00 H (0.90-2.90) K/uL Payne # (Auto) 0.80 (0.00-0.90) K/UL Eos # (Auto) 0.10 (0.00-0.50) K/uL Baso # (Auto) 0.00 (0.00-0.30) K/uL Abs Immat Gran (auto) 0.10 (0.00-0.30) K/uL Imm/Tot Granulo (auto) 0.4 % Sodium 138 (135-149) mmol/L Potassium 3.4 L (3.6-5.1) mmol/L Chloride 106 (96-114) mmol/L Carbon Dioxide 22 (20-32) mmol/L BUN 7 (5-24) mg/dL Creatinine 0.4 L (0.5-1.5) mg/dL Estimated Creat Clear 185.52 Estimated GFR 133 ml/min Glucose 105 (60-115) mg/dL Calcium 8.3 L (8.4-10.6) mg/dL Magnesium 1.8 (1.5-2.6) mg/dL TSH (0.270-4.20) uIU/mL POC Troponin I 0.02 (0.01-0.04) ng/ml 06/29/22 Range/Units 06:58 WBC (4.50-11.00) K/uL RBC (4.00-5.20) m/uL Hgb (12.0-16.0) gm/dL Hct (33.0-51.0) % MCV (80-100) fL MCH (26-34) pg MCHC (32-36) gm/dL RDW Coeff of Bonita (11.5-15.5) % Plt Count (140-440) K/uL Neut % (Auto) (42.0-72.0) % Lymph % (Auto) (20-44) % Payne % (Auto) (0.0-11.0) % Eos % (Auto) (0.0-7.0) % Baso % (Auto) (0.0-3.0) % Neut # (Auto) (1.7-7.0) K/uL Lymph # (Auto) (0.90-2.90) K/uL Payne # (Auto) (0.00-0.90) K/UL Eos # (Auto) (0.00-0.50) K/uL Baso # (Auto) (0.00-0.30) K/uL Abs Immat Gran (auto) (0.00-0.30) K/uL Imm/Tot Granulo (auto) % Sodium (135-149) mmol/L Potassium (3.6-5.1) mmol/L Chloride (96-114) mmol/L Carbon Dioxide (20-32) mmol/L BUN (5-24) mg/dL Creatinine (0.5-1.5) mg/dL Estimated Creat Clear Estimated GFR ml/min Glucose (60-115) mg/dL Calcium (8.4-10.6) mg/dL Magnesium (1.5-2.6) mg/dL TSH 1.370 (0.270-4.20) uIU/mL POC Troponin I (0.01-0.04) ng/ml <Elpidio Cuellar MD - Last Filed: 06/29/22 16:10> Lab Results 06/29/22 06/29/22 06/29/22 Range/Units 06:55 06:58 06:58 WBC 13.42 H (4.50-11.00) K/uL RBC 4.57 (4.00-5.20) m/uL Hgb 13.8 (12.0-16.0) gm/dL Hct 41.9 (33.0-51.0) % MCV 92 (80-100) fL MCH 30 (26-34) pg MCHC 33 (32-36) gm/dL RDW Coeff of Bonita 13.8 (11.5-15.5) % Plt Count 302 (140-440) K/uL Neut % (Auto) 70.6 (42.0-72.0) % Lymph % (Auto) 22.1 (20-44) % Payne % (Auto) 5.9 (0.0-11.0) % Eos % (Auto) 0.9 (0.0-7.0) % Baso % (Auto) 0.1 (0.0-3.0) % Neut # (Auto) 9.50 H (1.7-7.0) K/uL Lymph # (Auto) 3.00 H (0.90-2.90) K/uL Payne # (Auto) 0.80 (0.00-0.90) K/UL Eos # (Auto) 0.10 (0.00-0.50) K/uL Baso # (Auto) 0.00 (0.00-0.30) K/uL Abs Immat Gran (auto) 0.10 (0.00-0.30) K/uL Imm/Tot Granulo (auto) 0.4 % Sodium 138 (135-149) mmol/L Potassium 3.4 L (3.6-5.1) mmol/L Chloride 106 (96-114) mmol/L Carbon Dioxide 22 (20-32) mmol/L BUN 7 (5-24) mg/dL Creatinine 0.4 L (0.5-1.5) mg/dL Estimated Creat Clear 185.52 Estimated GFR 133 ml/min Glucose 105 (60-115) mg/dL Calcium 8.3 L (8.4-10.6) mg/dL Magnesium 1.8 (1.5-2.6) mg/dL TSH (0.270-4.20) uIU/mL POC Troponin I 0.02 (0.01-0.04) ng/ml 06/29/22 Range/Units 06:58 WBC (4.50-11.00) K/uL RBC (4.00-5.20) m/uL Hgb (12.0-16.0) gm/dL Hct (33.0-51.0) % MCV (80-100) fL MCH (26-34) pg MCHC (32-36) gm/dL RDW Coeff of Bonita (11.5-15.5) % Plt Count (140-440) K/uL Neut % (Auto) (42.0-72.0) % Lymph % (Auto) (20-44) % Payne % (Auto) (0.0-11.0) % Eos % (Auto) (0.0-7.0) % Baso % (Auto) (0.0-3.0) % Neut # (Auto) (1.7-7.0) K/uL Lymph # (Auto) (0.90-2.90) K/uL Payne # (Auto) (0.00-0.90) K/UL Eos # (Auto) (0.00-0.50) K/uL Baso # (Auto) (0.00-0.30) K/uL Abs Immat Gran (auto) (0.00-0.30) K/uL Imm/Tot Granulo (auto) % Sodium (135-149) mmol/L Potassium (3.6-5.1) mmol/L Chloride (96-114) mmol/L Carbon Dioxide (20-32) mmol/L BUN (5-24) mg/dL Creatinine (0.5-1.5) mg/dL Estimated Creat Clear Estimated GFR ml/min Glucose (60-115) mg/dL Calcium (8.4-10.6) mg/dL Magnesium (1.5-2.6) mg/dL TSH 1.370 (0.270-4.20) uIU/mL POC Troponin I (0.01-0.04) ng/ml <Berny Galicia MD - Last Filed: 06/29/22 08:41> Discharge Plan Discharge Clinical Impression: Hx of supraventricular tachycardia <Elpidio Cuellar MD - Last Filed: 06/29/22 16:10> Patient Disposition: Home w/ Parent or Adult <Elpidio Cuellar MD - Last Filed: 06/29/22 16:10> Condition: Improved <Elpidio Cuellar MD - Last Filed: 06/29/22 16:10> Additional Instructions: REST, LIGHT ACTIVITY, FLUIDS, TOPROL XL DAILY 25 MG PER THE LODGING MANAGER, CARDIOLOGY APPOINTMENT SCHEDULED. <Elpidio Cuellar MD - Last Filed: 06/29/22 16:10> Activity Level: Light activity <Elpidio Cuellar MD - Last Filed: 06/29/22 16:10> Light activity <Berny Galicia MD - Last Filed: 06/29/22 08:41> Discharge Diet: Regular <Elpidio Cuellar MD - Last Filed: 06/29/22 16:10> Regular <Berny Galicia MD - Last Filed: 06/29/22 08:41> Prescriptions: New metoprolol succinate [Toprol XL] 25 mg tablet extended release 24 hr 25 mg PO DAILY Qty: 14 2RF No Action Zyrtec 10 mg capsule 10 mg PO QDAY PRN DHA 200 mg capsule PO acetaminophen [Tylenol Extra Strength] 500 mg tablet 1,000 mg PO Q6H PRN aspirin 81 mg tablet,chewable 81 mg PO QDAY nogbl-cou-wvmwdepvvi-C-zinc 6 gram-38 mg- 25 mg-34 mg/5mL syrup PO <Elpidio Cuellar MD - Last Filed: 06/29/22 16:10> Follow Up/Referrals: Provider,Not a Local [Referring] - <Elpidio Cuellar MD - Last Filed: 06/29/22 16:10> Stand Alone Forms: My[facility] Info Instructions <Elpidio Cuellar MD - Last Filed: 06/29/22 16:10>
[2022-06-29 07:53] LABS: Slide Review Reflex No
[2022-06-29 08:01] LABS: Chloride* 106 mmol/L (96-114); Potassium* 3.4 mmol/L (3.6-5.1); Sodium* 138 mmol/L (135-149)
[2022-06-29 08:04] LABS: Carbon Dioxide* 22 mmol/L (20-32); Creatinine* 0.4 mg/dL (0.5-1.5); Est. Creatinine Clearance* 185.52; Estimated Glomerular Filt Rate 133 ml/min
[2022-06-29 08:05] LABS: Blood Urea Nitrogen* 7 mg/dL (5-24); Calcium* 8.3 mg/dL (8.4-10.6); Glucose* 105 mg/dL (60-115); Magnesium* 1.8 mg/dL (1.5-2.6)
--- NOTE | 2022-06-29 08:16 | PC.OBNST ---
NST Note NST Note Start: 06/29/22 08:07 Freq: ONCE Status: Active Protocol: Document 06/29/22 08:07 MMB (Rec: 06/29/22 08:16 MMB [id number]) NST Note 3 Para (# of births) 2 EDC 10[birth year]05/22 Gestational Age In Weeks & Days 26 Weeks & 0 Days Patient Presented with Complaint(s) of Other Other Complaints Observation in ED after an episode of SVT Reactive No Appropriate for Gestational Age Yes RN Sourav Fitzgerald RN Date 06/29/22 Reactive No Appropriate for Gestational Age Yes JERI Ely RN Date 06/29/22 OB NST charge Yes Complete NST Note via Write Note Yes The provider's electronic signature indicates the NST is reactive/appropriate for gestational age. *Note to provider: If an addendum is required, open the patient's chart and click on the note under the Nurse/Allied Health tab.
[2022-06-29] MEDS: METOPROLOL SUCCINATE (XL) 25 MG TAB PO (08:23)
== END 2022-06-29 08:25 | disposition home or self-care (01) ==
PROVIDERS: Emergency Provider Family Medicine; PCP Family Medicine
DX: I47.1 Supraventricular tachycardia (principal); Z33.1 Pregnant state, incidental
CPT/HCPCS: 36415; 59025; 80048; 83735; 84443; 84484; 85025; 93005; 96361; 96374; 96376; 99284; 99285; A9270; J0153; J7030

== ENCOUNTER 2022-07-13 08:45 | Outpatient (CLI) | payer OTHER, SELFPAY ==
[2022-07-16 01:13] LABS: Rapid Plasma Reagin (RPR) Non Reactive (Non Reactive)
== END 2022-07-13 08:46 | disposition home or self-care (01) ==
LOC: NFLDREF 08:45
PROVIDERS: PCP Family Medicine; Visit Provider Obstetrics & Gynecology
DX: Z34.90 Encounter for supervision of normal pregnancy, unspecified, unspecified trimester (principal)
CPT/HCPCS: 86592

== ENCOUNTER 2022-08-10 15:14 | Emergency (ER) | payer OTHER, SELFPAY ==
[2022-08-10] VITALS (9 sets, daily range): BP systolic 90–118; BP diastolic 60–79; PULSE 107–157; RESP 18; TEMP 36.9; O2SAT 98–99; BMI 29.4
--- NOTE | 2022-08-10 15:43 | ED.GENADULT ---
HPI - General Adult General Time Seen by Provider: 15:43 Date Seen: 08/10/22 Chief complaint: Arrhythmia/Palpitations Stated complaint: SVT Episode Time Seen by Provider: 08/10/22 15:16 Source: patient Mode of arrival: ambulatory Limitations: no limitations History of Present Illness HPI narrative: Patient is a very pleasant 36-year-old female who is in her 3rd at 32 weeks. She has had a history of SVT. She has been on a beta-roberta as well as had an SVT about early in March and got adenosine. She is scheduled to see an lithographic stripper in August and then during her maternity leave possibly get EP studies. She noticed early today about 10 she developed SVT, tried some vagal maneuvers it was unsuccessful, heart rate still remains elevated in the 130-180 range. She did respond adenosine in the past. I discussed her case with Dr. Ari Paz who agreed with adenosine, IV fluids, electrolytes. If the baby is moving well there is no vaginal bleeding or contraction she did not feel she needed OB monitoring. Related Data Home Medications Medication Instructions Recorded Confirmed cetirizine 10 mg capsule (Zyrtec) 10 mg PO QDAY PRN 03/07/22 08/12/22 docosahexaenoic acid 200 mg mg PO 03/07/22 08/12/22 capsule ( DHA) acetaminophen 500 mg tablet 1,000 mg PO Q6H PRN 04/19/22 08/12/22 (Tylenol Extra Strength) aspirin 81 mg chewable tablet 81 mg PO QDAY 04/19/22 08/12/22 anony-inf-hjjcnczuxe-C-zinc 6 ml PO 05/18/22 08/12/22 gram-38 mg-25 mg-34 mg/5 mL oral syrup Previous Rx's Medication Instructions Recorded metoprolol succinate 25 mg 25 mg PO DAILY #30 tabs 07/13/22 tablet,extended release 24 hr (Toprol XL) Allergies Allergy/AdvReac Type Severity Reaction Status Date / Time No Known Allergies Allergy Verified 08/12/22 13:43 Review of Systems Status of ROS: Reports: 6 or more systems reviewed and unremarkable except as noted in History and below PFSH PFS Medical History Anxiety History of Supraventricular tachycardia Surgical History H/O adenoidectomy History of section [place] teeth extracted Family History Father Skin cancer Mother Skin cancer Tachycardia Maternal Grandmother Tachycardia Social History Narrative: SOCIAL?? Education:? bachelors?? 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 Lives with:? and kids?? Pets: dog? Abuse:? Denies past/present?? Special Diet: Denies?? Ok with a blood transfusion:? yes?? Culture or quaker beliefs:? denies? Are you following a diet prescribed by a doctor: No Are you following a special diet: No Highest level of school completed/degree received: Bachelor's degree Physical activity type: walking and other Physical activity type details: [employer] body workout How many days of moderate to strenuous exercise, like a brisk walk, did you do in the last 7 days: 4 Smoking Status: Never smoker Do you use any of these nicotine containing products: None How often do you have a drink containing alcohol: never How often do you have six or more drinks on one occasion: Never AUDIT-C Alcohol total score: 0 Non-prescribed substance use: denies use Caffeine: Yes (occasionally only) Little interest or pleasure in doing things: not at all Feeling down, depressed, or hopeless: not at all service: No Exam Narrative: Exam Narrative: Objective: Vital signs unremarkable other than elevated pulse of 147 HEENT unremarkable neck supple nodes chest clear heart tachycardic rhythm 2/6 systolic murmur abdomen gravid nontender extremities are no edema neurologic nonfocal Const: Vital Signs, click to edit/add: Vital Signs - 24 hr 08/10/22 15:27 08/10/22 15:41 Temperature 98.5 F Pulse Rate [Pulse Oximeter] 147 H Respiratory Rate 18 Blood Pressure [Ri ght Upper Arm] 118/79 Pulse Oximetry 99 99 Oxygen Delivery Me thod Room Air Course Vital Signs Vital signs: Initial Vital Signs Temperature 98.5 F 08/10/22 15:27 Temperature Source Temporal Artery Scan 08/10/22 15:27 Pulse Rate 147 H 08/10/22 15:27 Respiratory Rate 18 08/10/22 15:27 Blood Pressure 118/79 08/10/22 15:27 Blood Pressure Mean 92 08/10/22 15:27 Pulse Oximetry 99 08/10/22 15:27 Oxygen Delivery Method 08/10/22 15:27 Vital Signs Temperature 98.5 F 08/10/22 15:27 Pulse Rate 147 H 08/10/22 15:27 Respiratory Rate 18 08/10/22 15:27 Blood Pressure 118/79 08/10/22 15:27 Pulse Oximetry 99 08/10/22 15:27 Oxygen Delivery Method 08/10/22 15:27 Temperature 98.5 F 08/10/22 15:27 Pulse Rate 114 H 08/10/22 16:31 Respiratory Rate 18 08/10/22 15:27 Blood Pressure 93/62 08/10/22 16:31 Pulse Oximetry 98 08/10/22 16:31 Oxygen Delivery Method 08/10/22 15:27 Medical Decision Making MDM Narrative Medical decision making narrative: Patient has a history of SVT, appears to have a tachycardic rhythm now. Feels her heart racing but has no chest pain. She has no difficulty breathing. No recent illness. Will give her 1 L fluid normal saline, check electrolytes, will give her 6 mg IV adenosine. Discussed with Dr. Dr. Ari ESTEBAN who agreed with the plan. Disposition pending her outcome Addendum: With verbal informed consent the patient agreed to proceed with adenosine, she was given 6 mg rapid infusion and seemed to have in the 120 range sinus rhythm. An EKG will be reperformed. If she continues to remain in sinus rhythm I think checking her electrolytes given her the L of fluid, and allowing her to go home later would be reasonable. Addendum: Patient's follow-up EKG after adenosine 6 mg IV shows sinus tachycardia rate 109 beats per minute clearly she has P waves no acute ST T wave changes. Her electrolytes and labs look reassuring. She has got good movement I think we can allow her to go home rest, light activity, fluids, update OB in a couple of days, return as needed. Follow up with the EP physician as scheduled Lab Data Labs: Lab Results 08/10/22 08/10/22 Range/Units 15:41 15:41 WBC 12.04 H (4.50-11.00) K/uL RBC 4.38 (4.00-5.20) m/uL Hgb 12.9 (12.0-16.0) gm/dL Hct 39.1 (33.0-51.0) % MCV 89 (80-100) fL MCH 30 (26-34) pg MCHC 33 (32-36) gm/dL RDW Coeff of Bonita 13.1 (11.5-15.5) % Plt Count 251 (140-440) K/uL Neut % (Auto) 69.9 (42.0-72.0) % Lymph % (Auto) 19.7 L (20-44) % [place] % (Auto) 7.6 (0.0-11.0) % Eos % (Auto) 1.3 (0.0-7.0) % Baso % (Auto) 0.3 (0.0-3.0) % Neut # (Auto) 8.40 H (1.7-7.0) K/uL Lymph # (Auto) 2.40 (0.90-2.90) K/uL [place] # (Auto) 0.90 (0.00-0.90) K/UL Eos # (Auto) 0.20 (0.00-0.50) K/uL Baso # (Auto) 0.00 (0.00-0.30) K/uL Sodium 138 (135-149) mmol/L Potassium 3.5 L (3.6-5.1) mmol/L Chloride 107 (96-114) mmol/L Carbon Dioxide 24 (20-32) mmol/L BUN 7 (5-24) mg/dL Creatinine 0.4 L (0.5-1.5) mg/dL Estimated Creat Clear 185.52 Estimated GFR 133 ml/min Glucose 102 (60-115) mg/dL Calcium 8.8 (8.4-10.6) mg/dL Discharge Plan Discharge Clinical Impression: Sustained SVT Patient Disposition: Home, Self-Care Condition: Improved Additional Instructions: Rest, light activity, fluids, continue home medications. Follow up with OB as scheduled, return as needed. Activity Level: Light activity Discharge Diet: Regular Prescriptions: No Action Zyrtec 10 mg capsule 10 mg PO QDAY PRN DHA 200 mg capsule PO acetaminophen [Tylenol Extra Strength] 500 mg tablet 1,000 mg PO Q6H PRN aspirin 81 mg tablet,chewable 81 mg PO QDAY rdjxe-txr-njqepgapiy-C-zinc 6 gram-38 mg- 25 mg-34 mg/5mL syrup PO metoprolol succinate [Toprol XL] 25 mg tablet extended release 24 hr 25 mg PO DAILY Qty: 30 2RF Follow Up/Referrals: Joanna Gaines MD [Primary Care Provider] - Stand Alone Forms: [facility] Info Instructions
[2022-08-10 15:57] LABS: Basophils Percent Auto 0.3 % (0.0-3.0); Eosinophils Percent Auto 1.3 % (0.0-7.0); Hematocrit 39.1 % (33.0-51.0); Hemoglobin* 12.9 gm/dL (12.0-16.0); Immature Granulocytes Pct Auto 1.2 %; Lymphocytes Percent Auto 19.7 % (20-44); Mean Corpuscular HGB Conc 33 gm/dL (32-36); Mean Corpuscular Hemoglobin 30 pg (26-34); Mean Corpuscular Volume 89 fL (80-100); Monocytes Percent Auto 7.6 % (0.0-11.0); Neutrophils Percent Auto 69.9 % (42.0-72.0); Platelet Count* 251 K/uL (140-440); RDW Coefficient of Variation % 13.1 % (11.5-15.5); Red Blood Count 4.38 m/uL (4.00-5.20); White Blood Count* 12.04 K/uL (4.50-11.00)
[2022-08-10] MEDS: ADENOSINE 6 MG/2ML INJ IVP (16:00)
[2022-08-10 16:04] LABS: Slide Review Reflex No
[2022-08-10 16:21] LABS: Chloride* 107 mmol/L (96-114); Potassium* 3.5 mmol/L (3.6-5.1); Sodium* 138 mmol/L (135-149)
[2022-08-10 16:23] LABS: Creatinine* 0.4 mg/dL (0.5-1.5); Est. Creatinine Clearance* 185.52; Estimated Glomerular Filt Rate 133 ml/min
[2022-08-10 16:24] LABS: Blood Urea Nitrogen* 7 mg/dL (5-24); Calcium* 8.8 mg/dL (8.4-10.6); Carbon Dioxide* 24 mmol/L (20-32); Glucose* 102 mg/dL (60-115)
[2022-08-10] MEDS: 0.9 % SODIUM CHLORIDE 1000 ml 1,000 ML 6000 ML IV (16:27)
== END 2022-08-10 16:46 | disposition home or self-care (01) ==
PROVIDERS: Emergency Provider Family Medicine; PCP Family Medicine
DX: I47.1 Supraventricular tachycardia (principal); Z3A.32 32 weeks gestation of pregnancy
CPT/HCPCS: 36415; 80048; 85025; 93005; 94761; 96374; 99285; J0153; J7030

== ENCOUNTER 2022-08-12 12:57 | Outpatient (CLI) | payer OTHER, SELFPAY ==
--- NOTE | 2022-08-12 13:00 | CRLHL7_ITS ---
For Patients: As a result of the Century Cures Act, medical imaging exams and procedure reports are released immediately into your electronic medical record. You may view this report before your referring provider. If you have questions, please contact your health care provider. INDICATION: Third trimester scan, evaluate growth. COVID and . COMPARISON: 03/07/2022 TECHNIQUE: Real time trammell scale imaging of the fetus was performed. FINDINGS: Sonographic imaging demonstrates a single living intrauterine gestation. Fetus demonstrates a regular cardiac rate of 138 beats per minute. Fetus has a vertex position. The placenta lies anteriorly. Amniotic fluid volume appears normal and there is a single deepest vertical pocket: 7.3 cm. The estimated weight is 2296gm which lies at the 87th %. BPD 55th percentile. HC 75th percentile. AC 97th percentile. FL 43rd percentile. The HC/AC ratio measures 1.01 range (0.95-1.11). IMPRESSION: Sonographic gestational age 32 weeks 5 days and sonographic due date 09/25/2022. Sonographic age is 10 days ahead of the clinical age. Estimated weight 87th percentile. Abdominal circumference 97th percentile. Dictated by Elpidio Cool MD @ 08/12/2022 3:30:31 PM (Electronically Signed)
== END 2022-08-12 12:58 | disposition home or self-care (01) ==
LOC: US 12:58
PROVIDERS: PCP Family Medicine; Visit Provider Obstetrics & Gynecology
DX: O98.513 Other viral diseases complicating pregnancy, third trimester (principal); U07.1 COVID-19; Z3A.32 32 weeks gestation of pregnancy
CPT/HCPCS: 76816

== ENCOUNTER 2022-09-09 13:55 | Outpatient (CLI) | payer OTHER, SELFPAY ==
--- NOTE | 2022-09-09 14:00 | CRLHL7_ITS ---
For Patients: As a result of the Cures Act, medical imaging exams and procedure reports are released immediately into your electronic medical record. You may view this report before your referring provider. If you have questions, please contact your health care provider. INDICATION: COVID IN COMPARISON: 08/12/2022 TECHNIQUE: Real time trammell scale imaging of the fetus was performed. FINDINGS: Sonographic imaging demonstrates a single living intrauterine gestation. Fetus demonstrates a regular cardiac rate of 159 beats per minute. Fetus has a vertex position. The placenta lies anteriorly. Amniotic fluid volume appears normal and there is a single deepest vertical pocket: 4.9 cm. The estimated weight is 2888gm which lies at the 51st %. On the prior OB ultrasound exam dated 08/12/2022 the estimated weight was at the 87th%. BPD 68th percentile. HC 56th percentile. AC 58th percentile. FL 30th percentile. The HC/AC ratio measures 1.03 range (0.92-1.06). IMPRESSION: Sonographic gestational age 36 weeks 4 days and sonographic due date of 10/03/2022. Good correlation with dates. Normal interval growth. Estimated weight 51st percentile. Abdominal circumference 58th percentile. Dictated by Elpidio Cool MD @ 09/12/2022 10:23:30 AM (Electronically Signed)
== END 2022-09-09 13:56 | disposition home or self-care (01) ==
LOC: US 13:56
PROVIDERS: PCP Family Medicine; Visit Provider Obstetrics & Gynecology
DX: O98.513 Other viral diseases complicating pregnancy, third trimester (principal); Z3A.36 36 weeks gestation of pregnancy
CPT/HCPCS: 76816

== ENCOUNTER 2022-09-09 15:09 | Outpatient (CLI) | payer OTHER, SELFPAY ==
[2022-09-10 14:28] LABS: Strep B DNA Probe NEGATIVE (Negative)
[2022-09-11 03:51] LABS: Strep B Pen/Amox Allergy No
== END 2022-09-09 15:10 | disposition home or self-care (01) ==
LOC: NFLDREF 16:23
PROVIDERS: PCP Family Medicine; Visit Provider Obstetrics & Gynecology
DX: O09.513 Supervision of elderly primigravida, third trimester (principal); Z3A.36 36 weeks gestation of pregnancy
CPT/HCPCS: 87081; 87653

== ENCOUNTER 2022-10-10 03:40 | Inpatient (IN) | payer OTHER, SELFPAY ==
[2022-10-10] VITALS (101 sets, daily range): BP systolic 86–148; BP diastolic 50–84; PULSE 74–197; RESP 16–18; TEMP 36.6–36.9; O2SAT 84–100; BMI 30.6
[2022-10-10 04:03] LABS: SARS PCR* Negative SARS-CoV-2 (Negative)
[2022-10-10 04:04] LABS: Basophils Absolute Auto 0.02 K/uL (0.00-0.30); Basophils Percent Auto 0.2 % (0.0-3.0); Eosinophils Absolute Auto 0.06 K/uL (0.00-0.50); Eosinophils Percent Auto 0.7 % (0.0-7.0); Hematocrit 35.4 % (33.0-51.0); Hemoglobin* 11.7 gm/dL (12.0-16.0); Immature Granulocytes Abs Auto 0.03 K/uL (0.00-0.30); Immature Granulocytes Pct Auto 0.4 %; Lymphocytes Absolute Auto 2.49 K/uL (0.90-2.90); Lymphocytes Percent Auto 30.6 % (20-44); Mean Corpuscular HGB Conc 33 gm/dL (32-36); Mean Corpuscular Hemoglobin 28 pg (26-34); Mean Corpuscular Volume 85 fL (80-100); Monocytes Percent Auto 7.4 % (0.0-11.0); Neutrophils Absolute Auto 4.95 K/uL (1.7-7.0); Neutrophils Percent Auto 60.7 % (42.0-72.0); Platelet Count* 214 K/uL (140-440); RDW Coefficient of Variation % 14.2 % (11.5-15.5); Red Blood Count 4.19 m/uL (4.00-5.20); White Blood Count* 8.15 K/uL (4.50-11.00)
[2022-10-10 04:05] LABS: Slide Review Reflex No
--- NOTE | 2022-10-10 08:53 | P.LDBA_ITS ---
Subjective History of Present Illness Date Seen: 10/10/22 Narrative: Patient is being admitted to Labor and Delivery for SROM, which occurred at home around 2:30 AM. Fluid is clear. She is a 37 year old -0-0-2 woman at 40 weeks, 5 days gestation. Specific Issues/Plans - Ger 1. Hx of C-S x1 and x1. Desires a TOLAC this . * TOLAC consent signed 08/26/22 * US for EFW at 36 weeks:? EFW 51% with all growth parameters within normal ranges, cephalic lie, SDP 4.9 cm2. Hx tachycardia - not a problem in past pregnancies. Usually resets with rest. -SVT episode treated with adenosine, had a cardiology appointment on 07/01/22 - Metoprolol 25 mg throughout . Patient getting ablation after p regnancy 3. AMA at time of delivery Genetic screening: declined Level 2 US:? Normal 05/18/2022 4. Anxiety - not on any meds at this time. Has PRN Vistaril but not using it 5. FOBs nephew has Q-22 deletion 6. HIV reactive, but follow up tests were?HIV Negative 7. COVID in 04/03/22.? * level 2 u/s normal * ?32 weeks:? Cephalic, SDP 7.3 cm, EFW 87%.? BPD 55%, HC 75%, AC 97%, FL 43%. * Growth ultrasound at 36 weeks:? as above Covid: Vaccinated Flu: 05/18/22 Tdap: 07/27/22 Her full history and physical was dictated by Rosalba Sandhu CNM on September 20. Please see this for details. OB - Problem Based A/P Additional Plan (1) Previous delivery affecting : Status: Acute (2) Supraventricular tachycardia: Problem details: Usually resolves with rest, but occasionally needs medications. Planning an ablation Status: Acute Plan: Currently with normal heart rate (3) Patient desires vaginal after section (): Status: Acute Plan Patient desires epidural. I recommended repeat cervical exam after epidural is placed. Continuous monitoring, given that this is TOLAC. She has had previous successful TOLAC, some her chance of successful vaginal is quite high. Delivery/Labor/Induction Plan Plan: expectant management OB Exam Physical Exam Vital signs: Temp Pulse Resp BP Pulse Ox 97.8 F 94 16 106/62 99 10/10/22 07:24 10/10/22 07:24 10/10/22 05:46 10/10/22 07:24 10/10/22 03:36 Narrative: Physical exam: General: When during contractions, breathing through them, lying in bed with peanut ball between her legs Psych: Alert and oriented x3, full affect HEENT: Normocephalic, atraumatic Lungs: Clear to auscultation bilaterally Abdomen: Soft, nontender, gravid, back on maternal right Skin: No lesions or rashes Lower extremities: No edema or erythema Pelvic exam: Per RN, 3.5 cm, 40% effaced at 7:30 a.m. Detailed Labor and Delivery Exam Dilation (cm): 3 Effacement (%): 40 Fetus (Single) Station: -3 Fetus C Amniotic membrane fluid description: Clear heart rate baseline: 130 monitor accelerations: Absent monitor decelerations: None buttermaker variability: Moderate (11-25)
[2022-10-10] MEDS: LACTATED RINGERS 1000 ML 1,000 ML 125 ML IV ×2 (09:07→13:25)
[2022-10-10] MEDS: ROPIVACAINE 0.2% 100 ml 100 ML 12 MG EPIDURAL (10:11)
--- NOTE | 2022-10-10 10:17 | P.ANBPRC_ITS ---
[facility] Medical History (Updated 10/10/22 @ 09:29 by Maryana Quick MD) Anxiety Chorioamnionitis History of Supraventricular tachycardia Vaginal after Surgical History (Updated 09/09/22 @ 15:31 by Maryana Quick MD) H/O adenoidectomy History of section [place] teeth extracted Family History Father Skin cancer Mother Skin cancer Tachycardia Maternal Grandmother Tachycardia Social History Narrative: SOCIAL?? Education:? bachelors?? 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 Lives with:? and kids?? Pets: dog? Abuse:? Denies past/present?? Special Diet: Denies?? Ok with a blood transfusion:? yes?? Culture or jehovah's witness beliefs:? denies? Are you following a diet prescribed by a doctor: No Are you following a special diet: No Highest level of school completed/degree received: Bachelor's degree Physical activity type: walking and other Physical activity type details: [employer] body workout How many days of moderate to strenuous exercise, like a brisk walk, did you do in the last 7 days: 4 Smoking Status: Never smoker Do you use any of these nicotine containing products: None How often do you have a drink containing alcohol: never How often do you have six or more drinks on one occasion: Never AUDIT-C Alcohol total score: 0 Non-prescribed substance use: denies use Caffeine: Yes (occasionally only) Little interest or pleasure in doing things: not at all Feeling down, depressed, or hopeless: not at all service: No Meds Home Medications and Allergies Home Medications Medication Instructions Recorded Confirmed Type cetirizine 10 mg capsule (Zyrtec) 10 mg PO QDAY PRN 03/07/22 10/10/22 History docosahexaenoic acid 200 mg mg PO 03/07/22 10/05/22 History capsule ( DHA) acetaminophen 500 mg tablet 1,000 mg PO Q6H PRN 04/19/22 10/10/22 History (Tylenol Extra Strength) aspirin 81 mg chewable tablet 81 mg PO QDAY 04/19/22 10/10/22 History xbdwr-wwy-tzdadtdcvu-C-zinc 6 ml PO 05/18/22 10/05/22 History gram-38 mg-25 mg-34 mg/5 mL oral syrup Allergies Allergy/AdvReac Type Severity Reaction Status Date / Time No Known Allergies Allergy Verified 10/05/22 14:37 Results Labs Labs: Laboratory Results - last 24 hr 10/10/22 10/10/22 10/10/22 03:25 04:00 04:00 WBC 8.15 RBC 4.19 Hgb 11.7 L Hct 35.4 MCV 85 MCH 28 MCHC 33 RDW Coeff of Bonita 14.2 Plt Count 214 Neut % (Auto) 60.7 Lymph % (Auto) 30.6 [place] % (Auto) 7.4 Eos % (Auto) 0.7 Baso % (Auto) 0.2 Neut # (Auto) 4.95 Lymph # (Auto) 2.49 [place] # (Auto) 0.60 Eos # (Auto) 0.06 Baso # (Auto) 0.02 SARS-CoV-2 (PCR) Negative SARS-CoV-2 Blood Type O Positive Antibody Screen NEGATIVE Vital Signs Vital Signs: Last Vital Signs Temp 98 F 10/10/22 08:57 Pulse 109 H 10/10/22 10:16 Resp 16 10/10/22 05:46 BP 93/50 L 10/10/22 10:16 Pulse Ox 99 10/10/22 03:36 Weight: 86.137 kg Height: 167.64 cm Anesthesia Procedures Epidural Insertion Patient Location: OB Start Time: 09:45 Stop Time: 10:45 Start Date: 10/10/22 Stop Date: 10/10/22 Reason for Block: procedure for pain Patient Position: sitting Performed By: Crow Mitchell Preanesthetic Checklist: IV checked, risks and benefits discussed, monitors and equipment checked, pre-op evaluation and anesthesia consent Prep: chlorhexidine gluconate Monitoring: blood pressure monitoring, continuous pulse oximetry and heart rate Approach: midline Vertebral Space: thoracic (1-12) Epidural Technique: RODGER saline Needle Type: Tuohy needle Injection Technique: continuous catheter Needle gauge: 17 Needle Length (cm): 10 cm Needle Insertion Depth (cm): 14 Catheter Gauge: 19 Catheter Type: multi-orifice Catheter at skin depth (cm): 7 Test Dose Result: negative and lidocaine 1.5% with epinephrine 1 to 200,000
[2022-10-10] MEDS: OXYTOCIN 30 unit/500 ML in NS 30 UNIT/500 ML BAG 300 UNIT IVPB (14:08)
[2022-10-10] MEDS: LIDOCAINE 1 % PF 30 ML INJECTION (14:20)
--- NOTE | 2022-10-10 14:35 | W.PM.VAGD1_ITS ---
Procedure Procedure Done: [facility] Procedure Details: The patient is a 37 year-old G 3 P 2-0-0-2 woman admitted on 10/10/2022 at 40 Weeks, 5 Days gestation for labor after spontaneous rupture membranes at home.? Cervical exam on admission was 3 cm/70 % effaced/-1 station with membranes ruptured in vertex presentation.? Contractions were regular.? heart rate demonstrated baseline 130 bpm with moderate variability, positive accelerations, no decelerations; a category 1 tracing.? SROM had occurred at 2:20 a.m. with clear fluid. ? Labor Analgesia:? Epidural ? Pitocin:? No ? Labor onset:? 10:45 a.m. ? Complete:? 1:40 p.m. ? Pushing:? 1:46 p.m. ? heart tones during second stage were notable for intermittent deep variable decelerations following contractions, with return to baseline in between. ? At 2:06 p.m. a viable female delivered in vertex OA presentation over second-degree perineal laceration via spontaneous vaginal delivery.? Infant was placed on maternal abdomen.? Cord was clamped and cut after a 60 second delay.? Nose and mouth were bulb suctioned.? weight pending.? 8 at 1 minute and 9 at 5 minutes.? Shoulder dystocia: No.? Nuchal cord: No. ? Placenta delivered spontaneously and complete with a 3 vessel cord within a normal amount of time. ? Mother and were stable after delivery. ? Lacerations:? Second-degree perineal, as well as a 5 mm inclusion cyst adjacent to the laceration containing mucus. This was amputated with scalpel, and was repaired at the time of the laceration, in the usual fashion, with running 2 0 Vicryl after infiltration with a total of nearly 10 mL of 1% lidocaine. ? Blood loss: 175 mL. Blood loss measurement type: EBL ? Sponge and needles counts are correct.
[2022-10-10] MEDS: IBUPROFEN 600 MG TABLET PO (17:43)
[2022-10-10] MEDS: ACETAMINOPHEN 500 MG TABLET 1000 MG PO (17:43)
[2022-10-10] MEDS: METOPROLOL SUCCINATE (XL) 25 MG TAB PO (18:30)
[2022-10-10] MEDS: SIMETHICONE 80 MG TAB.CHEW PO (21:15)
[2022-10-11] VITALS (7 sets, daily range): BP systolic 104–117; BP diastolic 65–78; PULSE 73–92; RESP 16–18; TEMP 36.6–36.9; O2SAT 96–98
[2022-10-11] MEDS: IBUPROFEN 600 MG TABLET PO ×3 (01:03→19:55)
[2022-10-11] MEDS: ACETAMINOPHEN 500 MG TABLET 1000 MG PO (05:31)
[2022-10-11 07:17] LABS: Hemoglobin* 10.3 gm/dL (12.0-16.0)
--- NOTE | 2022-10-11 07:37 | P.OBPN_ITS ---
OB - PN:Subj Subjective Time Seen by Provider: 07:37 Date Seen: 10/11/22 Interval history: Lizbeth is a 37 y.o. who was admitted to L & [facility] for after SROM. She had an uncomplicated NVD. Patient comments OB post-: no complaints, pain well controlled, tolerating diet and flatus present [place] infant status: and doing well feeding status: exclusively Narrative: The patient feels well. The pain is well controlled with current medications. She has no new complaints. She is breast feeding and reports things are going well.? the patient has done well.? Vitals have been stable.? She has remained afebrile.? Has a good appetite, is tolerating a general diet. She is voiding without difficulty.? She is passing gas and has not had a bowel movement.? She is ambulating and denies any dizziness.? Has Small amount of rubra lochia. Her partner recently tested covid positive, so she would like to stay one more day before going home. OB - PN: Obj Exam Physical Exam: Vital signs: Temp Pulse Resp BP Pulse Ox O2 Del Method 98.5 F 83 18 116/78 96 10/11/22 05:33 10/11/22 05:33 10/11/22 05:33 10/11/22 05:33 10/11/22 05:33 10/11/22 05:33 Narrative: GENERAL APPEARANCE: normal affect, alert, no distress MOOD: appropriate HEENT: normocephalic, neck supple, full ROM CHEST: Symmetrical chest wall movement. Normal respiratory effort. Clear to auscultation HEART: regular rate and rhythm ABDOMEN: soft, non-tender. Uterine fundus is firm, 2 above Umbilicus, Midline and is appropriate for the stage of recovery. Bowel sounds present. PERINEUM: mild edema of the perineum, there is a 2nd degree laceration that is healing well. EXTREMITIES: normal and no edema OB - PN: Obj Data Labs Labs: Laboratory Results - last 24 hr 10/11/22 06:54 Hgb 10.3 L OB - PN: A/P Vaginal Delivery Assessment and Plan (1) Previous delivery affecting : Status: Resolved (2) Supraventricular tachycardia: Problem details: Usually resolves with rest, but occasionally needs medications. Planning an ablation Status: Acute (3) Patient desires vaginal after section (): Status: Resolved Plan Plan: routine care Comments: G 3 P 3 status post uncomplicated NVD/ 1. Continue route PP cares 2. . May see if desired 4. Would like to stay another day since her partner is covid positive. Anticipate discharge home tomorrow
[2022-10-11] MEDS: DOCUSATE SODIUM 100 MG CAPSULE PO (11:40)
[2022-10-11] MEDS: METOPROLOL SUCCINATE (XL) 25 MG TAB PO (11:41)
[2022-10-12] MEDS: IBUPROFEN 600 MG TABLET PO (04:26)
[2022-10-12 04:40] VITALS: BP 104/68; PULSE 80; RESP 16; TEMP 36.5; O2SAT 97
[2022-10-12] MEDS: DOCUSATE SODIUM 100 MG CAPSULE PO (08:29)
[2022-10-12] MEDS: METOPROLOL SUCCINATE (XL) 25 MG TAB PO (08:29)
[2022-10-12 08:30] VITALS: BP 100/62; PULSE 90; RESP 16; TEMP 36.8; O2SAT 98
--- NOTE | 2022-10-12 08:48 | PM.OBDSVD1 ---
DS: Providers Provider Date Seen: 10/12/22 Date of admission: 10/10/22 03:40 Primary care physician: Joanna Gaines MD Admitting Clinician: Adriana Saravia MD Attending Physician on discharge: Adriana Saravia MD Date of Discharge: 10/12/22 DS: Diagnosis Discharge Diagnosis (1) (normal spontaneous vaginal delivery): Status: Acute (2) Vaginal after : Status: Acute (3) Lactating mother: Status: Acute Exam Narrative: Exam Narrative: Discharge Examination? GENERAL APPEARANCE:? normal affect, alert, no distress? MOOD:? appropriate? CHEST:? clear to auscultation and percussion? HEART:? regular rate and rhythm? ABDOMEN:? soft, non-tender the uterine fundus is 2 cm Below Umbilicus, Midline and is appropriate for the stage of recovery. ? PERINEUM:? mild edema of the perineum, there is a 2nd degree that is healing well.? EXTREMITIES:? normal and no edema? Patient has no complaints? No active bleeding?? Doing well? She is requesting discharge home. Const: Vital Signs, click to edit/add: Vital Signs - 24 hr 10/11/22 11:40 10/11/22 15:30 10/11/22 19:50 Temperature 97.8 F 97.9 F 98.2 F Pulse Rate [Blood Pressure Cuff] 86 92 91 Respiratory Rate 16 16 16 Blood Pressure [Ri ght Arm] 111/72 104/65 117/73 Pulse Oximetry 98 98 97 Oxygen Delivery Me thod Room Air Room Air Room Air 10/11/22 19:55 10/12/22 04:40 10/12/22 08:30 Temperature 98.2 F 97.7 F 98.2 F Pulse Rate [Blood Pressure Cuff] 80 90 Respiratory Rate 16 16 Blood Pressure [Ri ght Arm] 104/68 100/62 Pulse Oximetry 97 98 Oxygen Delivery Me thod Room Air Room Air Documenting provider has reviewed patient's vital signs: yes OB - DS: Summary Hospital Course Hospital Course: The patient is a 37 year old G 3 now P 3 at 40.5 weeks gestation that was admitted to the Center on 10/10/22 for SROM. She had an uncomplicated vaginal delivery. She delivered a viable female infant. She is breast feeding and states that it is going good. the patient has done well. Her pain is well controlled with current medications.? She has no new complaints.? Vitals have been stable. She has remained afebrile. She is voiding without difficulty. She is passing gas and has not had a bowel movement. She is ambulating and denies any dizziness. She is planning partner vasectomy in the future but considering Nexplanon until then for control.??? Peripartum Data delivery method: Vaginal Laceration description: Perineal - 2nd Degree Episiotomy description: None complications: none Infant Gender: Female Discharge Plan: Home Status at Discharge Functional status at discharge: independent ambulation Overall status at discharge: patient is progressing back to baseline Time Spent with Patient Time attestation: Total time spent providing and/or coordinating discharge services: Discharge Plan Discharge Disposition: Home, Self-Care Date of Admission: 10/10/22 03:40 Attending Provider on Discharge: Mima Mcneal Primary Care Provider: Joanna Gaines Condition: Stable Anticipated Discharge Date/Time: 10/12/22 10:00 Discharge Medications: New docusate sodium 100 mg Capsule 100 mg PO DAILY Qty: 60 0RF ibuprofen 600 mg Tablet 600 mg PO Q6H PRNQty: 30 0RF Continued Zyrtec 10 mg capsule 10 mg PO QDAY PRN DHA 200 mg capsule 200 mg PO DAILY acetaminophen [Tylenol Extra Strength] 500 mg tablet 1,000 mg PO Q6H PRN [id number] 6 gram-38 mg- 25 mg-34 mg/5mL syrup 5 ml PO DAILY PRN metoprolol succinate [Toprol XL] 25 mg tablet extended release 24 hr 25 mg PO DAILY Qty: 30 2RF Discontinued aspirin 81 mg tablet,chewable 81 mg PO QDAY Discharge Orders: Discharge Order (Routine); Ordered 10/12/22 Ordered By: Mima Mcneal Consulting provider completed their portion of the discharge: Yes Patient Education: OB Vaginal/Breast Feeding Additional Instructions: Discharge instructions were reviewed with the patient including signs and symptoms of infection and home going medications.? Lifting Restrictions: 20 pounds for 6? weeks? ?? Do not drive while taking narcotic pain meds.? Off Work or School for 6 weeks.? ?? Symptoms to report to doctor:? -Bleeding that saturates more than one pad per hour? -Passing clots larger than the size of a golf ball? -Pain not relieved by prescribed medication? -Fever above 100.4 degrees Fahrenheit? -A foul vaginal odor? -Difficulty in emotions, mood and functions? -Thoughts of hurting yourself and/or ? -Painful, reddened area in your breast? -Any drainage, redness or tenderness in your IV/epidural site? -Severe headache that doesn't improve after taking medications? -Changes in vision, including temporary loss of vision, blurred vision, and/or light sensitivity? -Upper abdominal pain (usually under ribs on the right side)? -Decrease in urination or painful, frequent urinating? -Chest pain? -Shortness of breath? -Tenderness or pain with redness and/swelling in the calf(s) of your leg? ?? Follow Up in clinic in 2 and 6 weeks.? ?? consultation services are available to all mothers and babies for the first year after delivery.? To make an appointment, please call [phone].? Activity Level: Activity as Tolerated Discharge Diet: Regular Follow Up Appointments: [facility] [Provider Group] Joanna Gaines MD [Primary Care Provider] - Forms: MyHealth Info Instructions
== END 2022-10-12 10:28 | disposition home or self-care (01) | DRG 805 ==
LOC: OB OUT 06:40 → OB 06:41
PROVIDERS: Obstetrics & Gynecology; Admitting Provider Obstetrics & Gynecology; PCP Family Medicine; Visit Provider Obstetrics & Gynecology
DX: O34.211 Maternal care for low transverse scar from previous cesarean delivery (principal); O99.42 Diseases of the circulatory system complicating childbirth; Z37.0 Single live birth; I47.1 Supraventricular tachycardia; O70.1 Second degree perineal laceration during delivery; Z3A.40 40 weeks gestation of pregnancy
CPT/HCPCS: 01967; 36415; 85018; 85025; 86850; 86900; 86901; 87635; A9270; J2001; J2370; J2795; J7120; S0020

== ENCOUNTER 2023-05-01 07:20 | Outpatient (CLI) | payer OTHER, SELFPAY ==
--- NOTE | 2023-05-01 08:21 | W.ANESCHARGE ---
Anesthesia Charges Start Date/Time Anesthesia Start Date: 05/01/23 Anesthesia Start Time: 07:52 Stop Date/Time Anesthesia Stop Date: 05/01/23 Anesthesia Stop Time: 08:18
--- NOTE | 2023-05-01 10:39 | W.ANESCHARGE ---
Anesthesia Charges Start Date/Time Anesthesia Start Date: 05/01/23 Anesthesia Start Time: 07:52 Stop Date/Time Anesthesia Stop Date: 05/01/23 Anesthesia Stop Time: 08:18
== END 2023-05-01 07:21 | disposition home or self-care (01) ==
LOC: OP CLINIC 07:20
PROVIDERS: PCP Family Medicine; Visit Provider Internal Medicine Gastroenterology
DX: K92.1 Melena (principal); K64.8 Other hemorrhoids
CPT/HCPCS: 45378; 811; 812; J2704

== ENCOUNTER 2025-03-12 11:02 | Outpatient (CLI) | payer BC, OTHER, SELFPAY | END 2025-03-12 11:03 | disposition home or self-care (01) | LOC: NFLDREF 11:02 | PROVIDERS: PCP Family Medicine; Visit Provider Advanced Practice Midwife | DX: Z13.6 Encounter for screening for cardiovascular disorders (principal) | CPT/HCPCS: 80061 ==